=== PATIENT | male | born 1980 | race Caucasian/White ===

== ENCOUNTER 2020-05-15 02:43 | Emergency (ER) | payer MEDICAID ==
[~2020-05-15] VITALS: Ht 182.9 cm; Wt 100.0 kg
[2020-05-15] MEDS ORDERED: HALO10 PO (02:49)
[2020-05-15] MEDS ORDERED: LIDOCAINE 5% TRANSDERMAL PATCH TD ONE (03:45)
[2020-05-15] MEDS ORDERED: IBUPROFEN 600 MG TABLET PO ONE (03:45)
[2020-05-15 05:41] VITALS: BP 126/68
== END 2020-05-15 06:13 | disposition home or self-care (01) ==
LOC: EMS 02:43
DX: T69.022A Immersion foot, left foot, initial encounter (principal); T69.021A Immersion foot, right foot, initial encounter; S39.012A Strain of muscle, fascia and tendon of lower back, initial encounter; Z59.0 Homelessness; X58.XXXA Exposure to other specified factors, initial encounter; Y93.89 Activity, other specified; Y92.89 Other specified places as the place of occurrence of the external cause; Y99.8 Other external cause status